=== PATIENT | male | born 1980 | race Caucasian/White ===

== ENCOUNTER 2021-10-30 08:15 | Outpatient (CLI) | payer BC, SELFPAY ==
[2021-10-30 14:19] LABS: Albumin* 4.8 g/dL (3.3-5.0)
[2021-10-30 14:20] LABS: Chloride* 102 mmol/L (96-114); Potassium* 4.6 mmol/L (3.6-5.1); Sodium* 139 mmol/L (135-149)
[2021-10-30 14:22] LABS: Aspartate Amino Transferase* 28 U/L (12-35); Bilirubin Total* 0.8 mg/dL (0.1-1.5); Blood Urea Nitrogen* 22 mg/dL (5-24); Carbon Dioxide* 28 mmol/L (20-32); Cholesterol* 283 mg/dL (90-199); Creatinine* 1.1 mg/dL (0.5-1.5); Estimated Glomerular Filt Rate 88 ml/min; Total Protein* 7.8 g/dL (6.0-8.3)
[2021-10-30 14:23] LABS: Alanine Aminotransferase* 24 U/L (4-50); Alkaline Phosphatase* 87 U/L (40-150); Calcium* 9.3 mg/dL (8.4-10.6); Glucose* 101 mg/dL (60-115); HDL Cholesterol* 46 mg/dL (>=40); LDL Cholesterol Calculated 202 mg/dL (<100); Triglycerides* 176 mg/dL (40-149)
[2021-10-30 16:19] LABS: Vitamin D 25 Hydroxy* 39 ng/mL (30-80)
== END 2021-10-30 08:16 | disposition home or self-care (01) ==
PROVIDERS: PCP Physician Assistant Medical; Visit Provider Physician Assistant Medical
DX: Z00.00 Encounter for general adult medical examination without abnormal findings (principal); R10.9 Unspecified abdominal pain; Z13.6 Encounter for screening for cardiovascular disorders; Z13.0 Encounter for screening for diseases of the blood and blood-forming organs and certain disorders involving the immune mechanism; Z13.29 Encounter for screening for other suspected endocrine disorder
CPT/HCPCS: 80053; 80061; 82306; 82652; 84443; 87086